=== PATIENT | male | born 1955 | race Caucasian/White ===

== ENCOUNTER 2016-10-02 18:16 | Inpatient (IN) | payer SELFPAY ==
--- NOTE | ~2016-10-02 | CN ---
Consultation Report [place] [id number] [facility] [place]. [address] NAME: NAVI ANNA : 57 STATUS : ADM IN PAT#: [id number] AGE: 61 ADM/REG DATE : 10/02/16 MR#: [id number] REPORT SERV DATE: 10/03/16 DICTATED BY: TERRENCE LÓPEZ JR DATE: 10/03/16 REPORT STATUS : Draft TRANSCRIBED BY: MODL DATE: 10/03/16 NEPHROLOGY CONSULTATION DATE OF CONSULTATION: 10/03/2016 REFERRING PHYSICIAN: Dr. Simons. REASON FOR CONSULTATION: Acute renal failure. IMPRESSION: 1. Acute renal failure versus acute on chronic renal failure, versus all chronic kidney disease. 2. Question nephrotic syndrome associated with diabetic or other primary nephropathy. 3. Consider diabetic nephropathy. 4. Consider cardiorenal. 5. Possible focal sclerosis associated with obstructive sleep apnea. 6. Consider other primary nephropathy, though urinalysis would not support glomerulonephritis. 7. Altered mental status, consideration of sleep apnea. No currently recognized offending medications. 8. Biomarkers notable for possible sepsis, clinically does not appear septic. 9. Decreased left ventricular ejection fraction 40% or less as mentioned elsewhere. 10.Morbid obesity. 11.Anasarca. 12.Diabetes of unknown duration or control. 13.Renal ultrasound at outside hospital showing bilateral exophytic cyst but otherwise unremarkable. 14.Doubt other acute glomerulonephritis based on available data. PLAN: Concur with planned diuretic need, treatment of the anasarca, and will use additionally a distal diuretic in combination with his chronic Bumex dosing. Evaluate and treat his obstructive sleep apnea. Serological evaluation as appropriate based on a 12-hour urine study. Thank you for the consult. HISTORY OF PRESENT ILLNESS: Mr. Anna is transferred here for possible sepsis and is said to have depressed left ventricular ejection fraction, and has developed a rising creatinine while he was being treated for "congestive heart failure" at outside hospital. Entry creatinine was 1.5. Outside notes suggested that was his baseline value. Outside notes reference proteinuria, but I do not see a quantitation of proteinuria. He is said to have diabetes of unknown duration, or chronic level of control, otherwise so an A1c referenced of 9.6. He is morbidly obese, smoking status is not known. Consultation Report [place] [address] [facility] [place]. [address] NAME: NAVI ANNA : 57 STATUS : ADM IN PAT#: [id number] AGE: 61 ADM/REG DATE : 10/02/16 MR#: [id number] REPORT SERV DATE: 10/03/16 DICTATED BY: TERRENCE LÓPEZ JR DATE: 10/03/16 REPORT STATUS : Draft TRANSCRIBED BY: BRYCE DATE: 10/03/16 HOME MEDICATIONS: Included metformin and lisinopril 40 mg twice daily. Other past medical history is not identified. The patient is hypersomnolent, does not participate in interview at this time. FAMILY HISTORY: In others' notes, noncontributory. SOCIAL HISTORY: In others' notes, documented as no tobacco habituation. . No alcohol or drug use. REVIEW OF SYSTEMS: Not otherwise available from this client at this time. PHYSICAL EXAMINATION: GENERAL: Morbidly obese male, who is hypersomnolent. He appears in no acute distress otherwise. HEENT: Cranium is normocephalic. Male pattern baldness is present. Scleral icterus is not seen. Periorbital edema is not present. Oropharynx; mucous membranes grossly appear moist NECK: Fat and I cannot see neck veins at all. Bruits could not be auscultated. HEART: Heart tones are regular without audible rub or gallop. LUNGS: Equal air entry, but respiratory effort is diminished. No increased rate. No excessive muscle use. ABDOMEN: Grossly obese with abdominal wall edema. Visceromegaly cannot be appreciated on examination. Bruits not heard. EXTREMITIES: Obese but he has 2+ to 3+ pitting edema, absent cyanosis. Diminished distal pulses symmetrically. NEUROLOGIC: Cannot further assess. PSYCHIATRIC: Cannot further assess. LABORATORY DATA: Chest x-ray showed reasonably clear lung rodríguez, and no significant cardiomegaly. Troponins have been slightly elevated. Creatinine was 1.5 at outside hospital, it was about 3.5 upon entry here. Urinalysis suggestive of proteinuria, but not otherwise quantitated. BNP was 1100. Lactic acid levels are not elevated. Data from outside hospital was reviewed. KATHY/BRYCE Terrence López Jr, M.D. / [id number] Consultation Report [place] [address] [place]. [address] NAME: NAVI ANNA : 57 STATUS : ADM IN PAT#: [id number] AGE: 61 ADM/REG DATE : 10/02/16 MR#: [id number] REPORT SERV DATE: 10/03/16 DICTATED BY: TERRENCE LÓPEZ JR DATE: 10/03/16 REPORT STATUS : Draft TRANSCRIBED BY: TABBYL DATE: 10/03/16 CC: Ashutosh Fuentes CALEB S
--- NOTE | ~2016-10-02 | CN ---
Consultation Report [facility] [address] [place]. [address] NAME: NAVI ANNA : 57 STATUS : ADM IN [facility]#: [id number] AGE: 61 ADM/REG DATE : 10/02/16 MR#: [id number] REPORT SERV DATE: 10/03/16 DICTATED BY: EFREN BURGOS DATE: 10/03/16 REPORT STATUS : Draft TRANSCRIBED BY: MODL DATE: 10/03/16 CARDIOLOGY CONSULT DATE OF CONSULTATION: 10/03/2016 REASON FOR CONSULTATION: Abnormal troponin. HISTORY PRESENT ILLNESS: Mr. Anna is a 61-year-old male with no known history of coronary artery disease, who is transferred from an outside facility for management of multiple medical problems. He recently presented there with symptoms of exertional shortness of breath, cough, and fever. He was found to have acute hypoxic respiratory failure with pneumonia and gram-positive bacteremia with sepsis. He subsequently developed acute renal failure and anasarca. Prior to his presentation with those complaints, he had a history of hypertension, diabetes, and obesity. He has had no recent history of exertional chest pain or angina. 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 He has had no palpitations or syncope. He denies orthopnea/PND. After several days of being treated at the outside facility due to progressive anasarca and shortness of breath, troponins were checked, which trended from 0.1 to 0.2. An echocardiogram was obtained after cardiology consult there with an EF of 40% and global hypocontractility. He has been transferred to [facility] for further evaluation and management. On arrival here, he was sitting at the bedside, eating breakfast with some dyspnea at rest, but no complaints. REVIEW OF SYSTEMS: Pertinent positives and negatives are as outlined above, all other negative. PAST MEDICAL HISTORY: 1. Hypertension. 2. Diabetes mellitus. 3. Obesity. 4. Family history of ischemic heart disease. HOME MEDICATIONS: 1. 70/30 insulin. 2. Metformin. 3. Lisinopril 40 mg daily. 4. Aspirin 325 mg daily. 5. Amlodipine. ALLERGIES: NO KNOWN DRUG ALLERGIES. SOCIAL HISTORY: He previously worked as a delivery rn. He has a remote history of tobacco use, but quit. He does not consume alcohol or use illegal drugs. FAMILY HISTORY: Significant for coronary artery disease and stroke. Consultation Report [place] [id number] [place]. [address] NAME: NAVI ANNA : 57 STATUS : ADM IN PAT#: [id number] AGE: 61 ADM/REG DATE : 10/02/16 MR#: [id number] REPORT SERV DATE: 10/03/16 DICTATED BY: EFREN BURGOS DATE: 10/03/16 REPORT STATUS : Draft TRANSCRIBED BY: BRYCE DATE: 10/03/16 PHYSICAL EXAMINATION: VITALS: Temperature is 99, pulse is 98, respirations 16, blood pressure is 170/100. GENERAL: Obese male with moderate diffuse anasarca, who is sitting upright in no acute distress. HEENT: Sclerae anicteric, mucous membranes moist and without lesions. NECK: Unable to assess jugular venous distention due to body habitus. No hepatojugular reflux, carotid upstrokes 2+ and symmetric, there are no carotid or subclavian bruit. LUNGS: Clear to auscultation without wheezes, or rales. Moderately decreased breath sounds throughout with basilar crackles. CARDIOVASCULAR: Regular and tachycardiac with occasional ectopy. Distant S1 and S2. No audible S3. No audible murmurs. ABDOMEN: Obese, soft, and nontender. Bowel sounds positive, normoactive. PULSES: 2+, radial and dorsalis pedis and symmetric. EXTREMITIES: Warm with diffuse pitting anasarca with bilateral upper and lower extremities. SKIN: No clubbing or cyanosis, no rashes or lesions. ACCESSORY DATA: ECG shows sinus rhythm with PACs, there is poor R wave progression with left axis deviation with no acute ST abnormalities. Troponin peaked at 0.2 with a creatinine of 3.4. White count on initial presentation at outside facility was 17,000, [id number] with broad- spectrum antibiotics. IMPRESSION: 1. Pneumonia. 2. Sepsis with gram-positive bacteremia. 3. Acute renal failure. 4. Acute hypoxic respiratory failure. 5. Anasarca. 6. Demand ischemia. 7. Hypertension. 8. Diabetes mellitus. 9. Obesity. PLAN: Mr. Anna' initial presentation appears to be a primary respiratory event. He may have a component of obstructive sleep apnea and Pickwickian syndrome. He has an EF of 40%, which is likely nonischemic etiology with no recent symptoms of angina, no ischemic ECG changes, and minimal troponin elevation in the setting of his critical illness and acute renal failure. No plans for invasive procedures as with his acute renal failure, risk with coronary angiography is greater than potential benefit as he is clinically improving. Recommend carvedilol, hydralazine, and nitrates for blood pressure. I agree with diuresis with Bumex, and close followup of renal function. We will follow with you. Recommend medical management for now. Consultation Report [place] [address] [place] [address] NAME: NAVI ANNA : 57 STATUS : ADM IN PAT#: [id number] AGE: 61 ADM/REG DATE : 10/02/16 MR#: [id number] REPORT SERV DATE: 10/03/16 DICTATED BY: EFREN BURGOS. DATE: 10/03/16 REPORT STATUS : Draft TRANSCRIBED BY: BRYCE DATE: 10/03/16 TIFFANIEA/BRYCE Efren Burgos M.D. / [id number] CC: Ashutosh Fuentes
--- NOTE | ~2016-10-02 | DS ---
Discharge Summary [facility] [address] [place]. [address] NAME: NAVI HUSSEIN : 57 STATUS : DIS IN PAT#: [id number] AGE: 61 ADM/REG DATE : 10/02/16 MR#: [id number] REPORT SERV DATE: 10/07/16 DICTATED BY: DATE: REPORT STATUS : Draft TRANSCRIBED BY: MODL DATE: 10/06/16 ADMISSION DATE: 10/02/2016 DISCHARGE DATE: 10/06/2016 The patient previously was hospitalized at [facility] in [place], [place] with date of admission, 09/29/2016 and date of transfer to [facility], 10/02/2016. The patient was initially admitted to the [facility] and followed by Dr. Uribe, transferred to the Hospitalist Service on 10/04/2016. CONSULTANTS: Included Dr. Schaeffer and Dr. Foster of the [facility] and Dr. Roberto Nunez of Nephrology. DISCHARGE DIAGNOSES: 1. Sepsis due to community-acquired pneumonia and group B strep bacteremia. 2. Right lower extremity cellulitis and bilateral groin cellulitis preceding transfer, suspected source of group B strep bacteremia. 3. Chronic kidney disease, stage IV. 4. 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 5. Hypertension, uncontrolled at admission. Improving, control at discharge. 6. Insulin-dependent diabetes mellitus type 2, uncontrolled with hemoglobin A1c at 10.1. Seen by outreach educator here. 7. New diagnosis of chronic systolic congestive heart failure with ejection fraction of 40%. 8. Demand-related ischemia, mild elevation of troponin due to sepsis and acute kidney injury versus chronic kidney disease. No invasive interventions this admission. 9. Clinically, obstructive sleep apnea. CPAP machine arranged through [facility], for outpatient sleep study. 10.Clinically, chronic obstructive pulmonary disease, for further outpatient evaluation with pulmonary function tests and assessment of daytime home oxygen needs. 11.Morbid obesity with BMI of 45. IMAGING AND DIAGNOSTICS: 1. In this facility included portable chest x-ray, 10/02/2016, shows borderline enlarged cardiac silhouette accentuated by shallow inspiration. Minimal atelectasis, but no clear infiltrate. 2. Portable chest x-ray, 10/04/2016, shows cardiomegaly. No airspace disease. 3. Nocturnal pulse oximetry on room air, 10/05/2016, shows significant desaturations during the study with elevated desaturation index of 61.7 and 49 minutes of the six hour study spent with oxygen saturation less than 88%. Recommendation for 2 L of oxygen by nasal cannula at discharge and recommendation for formal sleep study. PERTINENT LABS: MRSA nasal swab negative. Initial creatinine 3.8, 2.8 on the day of discharge. 12-hour urine protein demonstrating nephrotic-range proteinuria. Initial Discharge Summary [address] [address] NAME: NAVI HUSSEIN : 57 STATUS : DIS IN PAT#: [id number] AGE: 61 ADM/REG DATE : 10/02/16 MR#: [id number] REPORT SERV DATE: 10/07/16 DICTATED BY: DATE: REPORT STATUS : Draft TRANSCRIBED BY: MODL DATE: 10/06/16 troponin elevated at 0.3, down to 0.2 by the following morning. Admission blood gas with pH 7.33, pCO2 of 48, pO2 of 82, oxygen saturation 96% on room air. Urinalysis showed protein and glucose. Urine Legionella antigen negative. Strep pneumococcal antigen negative. Lactic acid level negative. BNP 1141. Initial procalcitonin elevated at 1.63. Liver enzymes normal. TSH normal. White blood cell count remained normal during the [facility] hospitalization. Blood cultures obtained at [facility] showed no growth. Report from [place] was of 1 of 2 bottles positive for group B strep from 09/29/2016. Hemoglobin A1c 10.1. Lyme antibody screen negative. Please also request records from [facility] for details of additional diagnostics performed there including echocardiogram demonstrating ejection fraction of 40% with global hypokinesis. BRIEF HISTORY: For full details, please see the previously dictated history of present illness by Dr. Shahbaz Simons. This is a 61-year-old white male who was admitted to [facility] in [place], [place] on 09/29/2016, for shortness of breath, whole body edema, hypoxemia with oxygen saturations in the 80s, bilateral atelectasis, fever of 103.2, leukocytosis, mild elevation of troponin, BNP, and D-dimer. BUN and creatinine were also found to be elevated, and lactic acid level was 2.8. There, he was treated for community-acquired pneumonia with Zosyn and Levaquin and was also placed on Zyvox for gram-positive bacteremia. His troponin became elevated slightly further during the hospitalization in [place], peaking at 0.22, and his creatinine up trended to 4.1. The patient was transferred to [facility] for cardiac and renal evaluation. HOSPITAL COURSE: The patient initially was admitted to the intensive care unit, Dr. Uribe served as the attending from 10/02/2016 through 10/04/2016, at which point, he was transferred out to the [facility] and the Hospitalist Service assumed his care. For details of those days, please reference the progress notes. The patient's antibiotic regimen was streamlined at admission. Zosyn was discontinued and renally dosed Levaquin was continued for treatment of community-acquired pneumonia. The outside transferring facility was contacted for finalized blood culture results, and the patient had been placed on vancomycin in the interim. Zyvox was discontinued. When cultures were resulted as group B strep, the patient was changed to IV Ancef, and now we will continue an additional two weeks of ampicillin for complete treatment. Suspected source is skin and soft tissue, including right lower extremity cellulitis prior to admission and bilateral groin cellulitis prior to admission. Both are resolved at present. The patient completed seven days of Levaquin treatment in the hospital for community-acquired pneumonia, and this was discontinued at discharge. Regarding the elevated troponin, this was determined to be demand-related ischemia. Cardiology saw the patient and recommended medical management, but no invasive evaluation. The patient does not have a history of coronary artery disease, though does have several risk factors and will follow up with Dr. Schaeffer in the outpatient setting for further evaluation. Echocardiogram at the outside facility revealed ejection fraction of 40% for new diagnosis of chronic systolic congestive heart failure. He did demonstrate acute exacerbation during the admission with hypoxemia prior to transfer and anasarca. His medication regimen including diuretics was managed by both Cardiology and Nephrology. Discharge Summary [place] [address] [address] [place]. [address] NAME: NAVI HUSSEIN : 57 STATUS : DIS IN PAT#: [id number] AGE: 61 ADM/REG DATE : 10/02/16 MR#: [id number] REPORT SERV DATE: 10/07/16 DICTATED BY: DATE: REPORT STATUS : Draft TRANSCRIBED BY: MODL DATE: 10/06/16 Regarding his elevated creatinine, the patient was seen by Nephrology, Dr. Roberto Nunez. 12 hour urine protein revealed gross proteinuria. Dr. Nunez felt this was likely related to uncontrolled insulin-dependent diabetes mellitus type 2 versus sleep apnea associated focal segmental glomerulosclerosis. Metformin, which he had taken as an outpatient was held as well given new probable diagnosis of chronic kidney disease, stage IV. The acute kidney injury resolved during the admission. The patient was noted on several occasions to be snoring loudly while sleeping and with excessive daytime somnolence. Nocturnal pulse oximetry study was obtained with frequent desaturations. The patient is a self-pay patient, but a CPAP machine was obtained for him through [employer] by our piano case maker. He will have to have a formal outpatient sleep study for calibration of his CPAP machine. Case management is also working on determining if we can arrange for 2 L of oxygen by nasal cannula at bedtime for him. He is being evaluated for home daytime oxygen requirements as well. He has a past extensive history of smoking, but quit 15 years ago, and may have some underlying COPD. The patient's diabetes was controlled with blood sugars between 150 and 180 on a regimen of Levemir and NovoLog. Unfortunately, he will have to resume 70/30 at discharge for financial considerations. He was seen by the inpatient outreach educator here and both he and were educated on the need for adherence to a diabetic diet. Additional test strips and lancets were ordered for him as well. DISCHARGE DISPOSITION: The patient is being discharged to home in the care of his supportive family. He is being assessed for home daytime oxygen needs prior to discharge, and case management is attempting to arrange 2 L oxygen by nasal cannula for bedtime use until he follows up for a formal sleep study and can have the CPAP machine calibrated. The patient should adhere to an 1800 kilocalorie ADA, 2 g sodium restricted, 2 L fluid restricted diet at discharge and was educated on this by nursing staff. He has multiple followup appointments pending including with Nephrology associates in three weeks, with Dr. Schaeffer in four weeks, and with PCP Amauri CUENCA within one week. Unfortunately, despite Case Management's best efforts, the patient does not presently have a disability qualifying diagnosis and therefore, application for insurance could not be made this admission. The patient will need to continue to follow up closely with his primary care provider for re-evaluation in the future. DISCHARGE MEDICATIONS: 1. Aspirin 81 mg p.o. daily. 2. Carvedilol 25 mg p.o. twice a day. 3. Imdur 30 mg p.o. twice a day. 4. Potassium chloride 40 mEq p.o. twice a day. 5. Torsemide 40 mg p.o. twice a day for five days, then daily. 6. Hydralazine 25 mg p.o. every eight hours. 7. Celexa 40 mg p.o. daily. 8. Humulin 70/30, 30 units subcutaneously q.a.c. breakfast and supper. Discharge Summary [address] [address] NAME: NAVI HUSSEIN : 57 STATUS : DIS IN PAT#: [id number] AGE: 61 ADM/REG DATE : 10/02/16 MR#: [id number] REPORT SERV DATE: 10/07/16 DICTATED BY: DATE: REPORT STATUS : Draft TRANSCRIBED BY: MODL DATE: 10/06/16 9. Ampicillin 500 mg p.o. q.8 hours for two weeks. 10.Rely on test strips and lancets for t.i.d. testing. Lisinopril is on hold until re-evaluated by Nephrology as is metformin. Forty-five minutes was spent in completion of the discharge, including coordination with case management and specialists and review of the plan with the patient and family. INES/BRYCE Jared Mendoza M.D. / [id number] CC: Ashutosh Abarca Jr, M.D. Allen E Atchley, M.D.
--- NOTE | ~2016-10-02 | PUL ---
[place] [address] [place]. [address] NAME: NAVI HUSSEIN : 57 STATUS : ADM IN PAT#: [id number] AGE: 61 ADM/REG DATE : 10/02/16 MR#: [id number] REPORT SERV DATE: 10/05/16 DICTATED BY: KRISTINA OGLESBY DATE: 10/05/16 REPORT STATUS : Draft TRANSCRIBED BY: MODL DATE: 10/05/16 PULMONARY FUNCTION TEST OVERNIGHT OXIMETRY REPORT COMMENTS: Testing was performed with the patient breathing on room air. Start date of testin10/04/2016. Ended date of testin10/05/2016. RESULTS: Total valid sampling time 6 hours 12 minutes and 24 seconds. Total time with an oxygen saturation less than 88% at 49 minutes and 28 seconds. Oxygen desaturation event index 61.7. IMPRESSION: There was significant desaturation during this study conducted while the patient was breathing on room air. The oxygen desaturation index was elevated suggestive of possible obstructive sleep apnea. RECOMMEND: Supplemental oxygen at a minimum flow rate of 2 liters/minute while sleeping. Additionally, I recommend formal sleep study to evaluate for possible obstructive sleep apnea if clinically indicated. PS/BRYCE Kristina Oglesby M.D. / [id number] CC: Ashutosh Abarca CALEB S
--- NOTE | ~2016-10-02 | HP ---
History And Physical [id number] [place]. [address] NAME: NAVI HUSSEIN : 57 STATUS : ADM IN [facility]#: [id number] AGE: 61 ADM/REG DATE : 10/02/16 MR#: [id number] REPORT SERV DATE: 10/02/16 DICTATED BY: ANGIE STEWARD DATE: 10/02/16 REPORT STATUS : Draft TRANSCRIBED BY: MODL DATE: 10/02/16 DATE OF ADMISSION: 10/02/2016 Transfer from [place], [place], for oliguria and elevated troponins. Recent treatment for sepsis and pneumonia additionally. The patient was transferred to MICU, evaluated by Dr. Teran, requesting hospitalist admission to IMCU and transfer off MICU due to no acute MICU requirements at this time. Majority of information is also obtained from outside records. HISTORY OF PRESENT ILLNESS: The patient is a 61-year-old male with history of obesity, type 2 diabetes insulin dependent, hypertension, COPD, congestive heart failure, who presented to [facility] with shortness of breath and found to be hypoxic with oxygenation in the 80s, found to have bilateral atelectasis, rales, fever of 103.2, leukocytosis over 16,000. Troponin was elevated at 0.12. The patient additionally had a BNP noted at 1660, D-dimer at 2100. BUN and creatinine at 20 and 24. Lactic acid was 2.8 and was transferred to higher level of care of [facility] ICU. There, he was treated for community-acquired pneumonia, but was started on Zyvox, Zosyn, and Levaquin for broad-spectrum coverage in the emergency room. Troponin was trended peaking at 0.22. Workup for sepsis was continued. The patient's severe sepsis criteria included lactic acidosis, leukocytosis, fever, and TORSTEN. Fever did have resolution. Leukocytosis and lactic acidosis came back down to normal range. However, the patient did have progressive oliguria and TORSTEN above his CKD status with creatinine going from 2.4 to 2.7, up to 4.1 currently with the presence of troponin elevations at 0.22. The patient was transferred to [facility] for renal and cardiac evaluation. When discussion with the patient, he denies having any chest pain issues except with deep breathing. He reports that he has had multiple family members who have been sick. Does have history of heart failure and he says he is chronically having 4+ edema on a day-to-day basis. The patient's shortness of breath has been progressive over the last month. Does report that it is notably better, but not quite resolved. His main concern at this time is, he is eager to eat. The patient also reported that he did not quite recognize fevers at home, but was told he had fevers in the hospital setting. No true sputum production or cough. There are no worsening symptoms, but no relieving symptoms. The patient reports that he was doing a lot of urination at home, but he did require using Lasix three times a day. REVIEW OF SYSTEMS: For additional 10-point review of systems, these are negative except that noted in HPI. PAST MEDICAL HISTORY: As noted above. SURGICAL HISTORY: Hiatal hernia. ALLERGIES: NO KNOWN DRUG ALLERGIES. SOCIAL HISTORY: Smoked two packs a day for 18 years, quit about 15 years ago. No alcohol or illicits. Has at bedside and children at bedside. History And Physical [address] [address] NAME: NAVI HUSSEIN : 57 STATUS : ADM IN [facility]#: [id number] AGE: 61 ADM/REG DATE : 10/02/16 MR#: [id number] REPORT SERV DATE: 10/02/16 DICTATED BY: ANGIE STEWARD DATE: 10/02/16 REPORT STATUS : Draft TRANSCRIBED BY: BRYCE DATE: 10/02/16 FAMILY HISTORY: Heart father of [place] at age 81. HOME MEDICATIONS: Aspirin, Celexa, Lasix t.i.d., Humulin, Prinivil 40 mg b.i.d., Glucophage, Klor-Con. PHYSICAL EXAMINATION: VITAL SIGNS: O2 saturations 94% on 2 L, blood pressure 130/83, temperature 98, pulse 83, respirations 14. GENERAL: Obese, well developed, well nourished. Appears older than stated age. EYES: No scleral icterus. EOMI. ENT: Nares patent. Moist mucous membranes. NECK: Large neck. CHEST: Increased AP diameter. RESPIRATORY: Polyphonic breath sounds in lower lung rodríguez with mildly diminished lung rodríguez. No stridor. Mouth breather. CV: Regular rate. Mild systolic ejection murmur with 4+ bilateral edema. Cap refill less than 2 seconds. GI: Central obesity. Large, distended with tympany. Negative rebound. Mild fluid wave. SKIN: Warm and dry. LYMPH: No cervical lymphadenopathy. Does have bilateral pedal edema. MUSCULOSKELETAL: Moves all extremities x4, but does have difficulty elevating lower extremities secondary to 4+ edema. NEURO: Symmetrical strength upper and lower extremities. Has normal vocal liza. Alert and oriented. Symmetrical smile. PSYCH: Appropriate mood and affect, joking manner. LABORATORY DATA: Labs from outside facility, lactate initially was 2.8 down to 1.6. WBC initially was 16.5, down to 8.8. Troponins have peaked at 0.22. Creatinine has been from 2.7, up to 4.1 with proteinuria. Albumin at 1.9. BMP initially 1660. Repeat at 210. Echocardiogram showed ejection fraction of 35% to 40%. The patient's blood cultures are gram-positive cocci. Chest x-ray, no mismatched perfusion to suggest pulmonary embolism. However, intermediate probability for PE. Ultrasound Dopplers negative in upper and lower extremities done at outside facility. Ultrasound of kidneys, bilateral large simple renal cyst. No signs of obstructive uropathy. EKG, none currently on chart. ASSESSMENT: 1. Community-acquired pneumonia. 2. Severe sepsis. 3. Gram-positive bacteremia. 4. Elevated troponin. 5. Oliguria with chronic kidney disease and current acute kidney injury. 6. Anasarca. 7. Diabetes type 2 with A1c at 9.6, insulin dependent. 8. Obesity. 9. Hypertension. 10.Elevated D-dimer. 11.Hypomagnesemia. History And Physical [address] [address] NAME: NAVI HUSSEIN : 57 STATUS : ADM IN [facility]#: [id number] AGE: 61 ADM/REG DATE : 10/02/16 MR#: [id number] REPORT SERV DATE: 10/02/16 DICTATED BY: ANGIE STEWARD DATE: 10/02/16 REPORT STATUS : Draft TRANSCRIBED BY: MODL DATE: 10/02/16 12.Chronic obstructive pulmonary disease. 13.Congestive heart failure, systolic. 14.Acute hypoxic respiratory failure on arrival at outside facility. PLAN: 1. For community-acquired pneumonia, the patient was started on broad-spectrum antibiotics at outside facility including Levaquin, Zyvox, and Zosyn. Per nurse, has received Levaquin earlier today. Due to renal function, we will need to have renal dosing. We will discontinue Zosyn and Zyvox. Dose vancomycin with renal dosing due to gram- positive cultures. Additionally, add flutter valve, O2, and DuoNeb treatments. Repeat chest x-ray. Repeat blood cultures. The patient was additionally gram-positive bacteremic. Check urine Strep and Legionella. 2. Sepsis, gram-positive bacteremia. Initial fevers of 103.2, leukocytosis 16.5, lactic acidosis of 2.8. TORSTEN. The patient's fever has resolved. Leukocytosis has resolved. Lactic acidosis has resolved. However, the patient has persistent progressive TORSTEN. We will continue treatment for pneumonia with pharmacy help assisting with dose adjustments of medications. Again, stop all nephrotoxins. Continue to monitor. 3. Gram-positive bacteremia. Culture still pending. Discontinue Zosyn and Zyvox. Renal dose Levaquin. Start vancomycin. 4. Elevated troponin. Troponin is at 0.1 to 0.22. Questionable supply demand mismatch. However, the patient had not been started on heparin drip. The patient denies any chest pain except during deep breathing cycles. The patient was transferred here for additional cardiac evaluation and nephrology evaluation. Does have history of CHF. 5. Oliguria, CKD stage 3 with TORSTEN. Creatinine is up to 4.1 with gross proteinuria. Low albumin. The patient has currently stopped on RENETTA inhibitor. Was being given IV fluid boluses in the setting of sepsis at outside facility and in the presence of TORSTEN. Holding additional fluid boluses at this time. Has vital signs, blood pressure stable until evaluated by Renal. Additionally holding metformin. 6. Anasarca, +4 edema, acute on chronic. The patient reports for a long time, most notably over the last month with significant weight gain. Does have history of heart failure, systolic. EF of 35% to 40%. 7. Diabetes. A1c 9.6, sliding scale insulin. We will restart Levemir. Discontinue metformin. Diabetic education. 8. Obesity. Positive fluid gain likely secondary to fluid balance and likely no dietary restriction. 9. Hypertension, acceptable. 10.Elevated D-dimer. Has had extensive workup including V/Q scan with intermediate probability. Negative ultrasounds per outside facility records. Doubt active PE. CT, unable to be performed secondary to renal disease. 11.Hypomagnesemia. Has been replaced at outside facility. 12.COPD. O2, DuoNebs. 13.CHF with EF 35% to 40%. BNP was noted last at 210. Was taking up to three Lasix a day. Lisinopril. We will hold these at this time. These were held in the setting of CKD, TORSTEN, and sepsis. We will need to continue further monitoring. I's and O's as tolerated in the setting of oliguria, TORSTEN. 14.Acute hypoxic respiratory failure on initial presentation. This appears to have been improving, but multifactorial with a history of CHF, COPD, obesity, anasarca, CKD. History And Physical [address] [address] NAME: NAVI HUSSEIN : 57 STATUS : ADM IN [facility]#: [id number] AGE: 61 ADM/REG DATE : 10/02/16 MR#: [id number] REPORT SERV DATE: 10/02/16 DICTATED BY: ANGIE STEWARD DATE: 10/02/16 REPORT STATUS : Draft TRANSCRIBED BY: MODL DATE: 10/02/16 Additionally likely decompensated after pneumonia and severe sepsis component. Case has been reviewed by ICU, Dr. Teran. Does not appear to require MICU, acute care needs. We will transfer to IMCU and possible floor. DDN/MODL Angie Steward MD / [id number] CC: Caryl Reyna M.D. KAILYN PARRISH
[2016-10-02] MEDS ORDERED: L20 PO ×2 (20:30→20:45)
[2016-10-02] MEDS ORDERED: GLUCOPHAGE1000 MG PO (20:30)
[2016-10-02] MEDS ORDERED: LISINOPRIL40 MG PO (20:30)
[2016-10-02] MEDS ORDERED: KLOR-CON M1010 MEQ PO (20:30)
[2016-10-02] MEDS ORDERED: CELEXA40 MG PO (20:30)
[2016-10-02] MEDS ORDERED: HUMULIN SC (20:31)
[2016-10-02] MEDS ORDERED: ASABAYER PO (20:46)
[2016-10-02 23:05] LABS: CREATININE 3.81 MG/DL (0.70-1.30)
[2016-10-03 03:31] LABS: INSTRUMENT SERIAL # 8083; PCO2 (CO2 TENSION) 48 MMHG (35-45); pH 7.33 (7.37-7.43)
[2016-10-03 03:32] LABS: BE (BASE EXCESS) -1.2 MEQ/L (0 +/- 2.5); CARBOXYHEMOGLOBIN 1.2 % (0-3); DEVICE NC; HCO3 (ACTUAL BICARBONATE) 25.1 MEQ/L (23-27); HEMOBLOGIN CONTENT 13.9 G/DL (14-18); METHEMOGLOBIN 0.2 % (0-3); O2 CONTENT 18.5 VOL% (18-24); PO2 (O2 TENSION) 82 MMHG (79-93); SAMPLE Arterial
[2016-10-03 04:35] LABS: ASCORBIC ACID (UR NOT ORDER) NEG (NEG); BILIRUBIN, URINE NEGATIVE (NEG); KETONE, URINE NEGATIVE (NEG); LEUKOCYTE ESTERASE(NOT OR NEG (NEG); WBC (NOT ORDERED) (RFLEX) 1 (0-5)
[2016-10-03 04:42] LABS: BASOPHILS 0.2 %; BASOPHILS ABSOLUTE 0.02 10/3/uL (0.0-0.16); EOSINOPHILS 2.5 %; EOSINOPHILS ABSOLUTE 0.23 10/3/uL (0.0-0.53); HEMOGLOBIN 13.3 g/dL (13.6-17.8); IMMATURE GRANULOCYTES 0.4 %; IMMATURE GRANULOCYTES ABSOLUTE 0.04 10/3/uL (0.0-0.11); LYMPHOCYTES 13.4 %; LYMPHOCYTES ABSOLUTE 1.24 10/3/uL (0.67-4.30); MEAN CORPUS HGB CONC 33.3 g/dL (32.0-36.0); MEAN CORPUSCULAR VOLUME 90.1 fL (80-100); MEAN PLATELET VOLUME 10.3 fL (9.2-13.0); MONOCYTES 8.8 %; MONOCYTES ABSOLUTE 0.81 10/3/uL (0.21-1.20); NEUTROPHILS 74.7 %; NEUTROPHILS ABSOLUTE 6.89 10/3/uL (2.02-8.40); PLATELET COUNT 218 10/3/uL (150-400); RBC DISTRIBUTION WIDTH 13.4 % (12.0-16.0); RED CELL COUNT 4.44 10/6/uL (4.7-6.1); WHITE BLOOD CELLS 9.2 10/3/uL (4.5-10.5)
[2016-10-03 04:43] LABS: MANUAL DIFF NO %
[2016-10-03 05:13] LABS: A/G RATIO 0.6 (0.7-1.9); ALBUMIN 2.1 G/DL (3.5-5.0); ALKALINE PHOSPHATASE 60 U/L (45-117); BUN (BLOOD UREA NITROGEN) 51 MG/DL (6-23); CALCIUM, SERUM 8.3 MG/DL (8.5-10.4); CHLORIDE, SERUM 102 MMOL/L (96-112); CO2 (CARBON DIOXIDE) 23 MMOL/L (24-34); CREATININE 3.42 MG/DL (0.70-1.30); GFR AFRICAN AMERICAN 21 ML/MIN (>=60); GFR NON AFRICAN AMERICAN 18 ML/MIN (>=60); GLOBULIN 3.4 G/DL (2.5-4.1); GLUCOSE, SERUM 227 MG/DL (60-99); POTASSIUM, SERUM 3.8 MMOL/L (3.5-5.3); SGOT(AST) 14 U/L (5-40); SGPT(ALT) 19 U/L (5-65); SODIUM, SERUM 139 MMOL/L (135-148); TOTAL BILIRUBIN 0.6 MG/DL (0-1.2); TOTAL PROTEIN 5.5 G/DL (6.0-8.5)
[2016-10-03 06:57] LABS: PROCALCITONIN 1.63 ng/mL (<0.5)
[2016-10-04 03:56] LABS: CREATININE, URINE 17.4 MG/DL; T.P. URINE (NOT ORDER RAN 43.3 MG/DL
[2016-10-04 03:58] LABS: URINE CREAT 0.92 G/T VOL (0.6-2.8)
[2016-10-04 05:14] LABS: BASOPHILS 0.2 %; BASOPHILS ABSOLUTE 0.02 10/3/uL (0.0-0.16); EOSINOPHILS 1.3 %; EOSINOPHILS ABSOLUTE 0.13 10/3/uL (0.0-0.53); HEMATOCRIT 43.1 % (40.0-51.0); HEMOGLOBIN 14.5 g/dL (13.6-17.8); IMMATURE GRANULOCYTES 0.5 %; IMMATURE GRANULOCYTES ABSOLUTE 0.05 10/3/uL (0.0-0.11); LYMPHOCYTES 8.2 %; LYMPHOCYTES ABSOLUTE 0.84 10/3/uL (0.67-4.30); MANUAL DIFF NO %; MEAN CORPUS HGB CONC 33.6 g/dL (32.0-36.0); MEAN CORPUSCULAR HEMOGLOB 30.1 pg (26.0-34.0); MEAN CORPUSCULAR VOLUME 89.6 fL (80-100); MEAN PLATELET VOLUME 9.8 fL (9.2-13.0); MONOCYTES 10.7 %; NEUTROPHILS 79.1 %; PLATELET COUNT 212 10/3/uL (150-400); RBC DISTRIBUTION WIDTH 13.1 % (12.0-16.0); RED CELL COUNT 4.81 10/6/uL (4.7-6.1); WHITE BLOOD CELLS 10.2 10/3/uL (4.5-10.5)
[2016-10-04 05:26] LABS: ALBUMIN 2.1 G/DL (3.5-5.0); BUN (BLOOD UREA NITROGEN) 49 MG/DL (6-23); CALCIUM, SERUM 8.6 MG/DL (8.5-10.4); CHLORIDE, SERUM 99 MMOL/L (96-112); CO2 (CARBON DIOXIDE) 27 MMOL/L (24-34); CREATININE 3.25 MG/DL (0.70-1.30); GFR AFRICAN AMERICAN 23 ML/MIN (>=60); GFR NON AFRICAN AMERICAN 20 ML/MIN (>=60); GLUCOSE, SERUM 268 MG/DL (60-99); POTASSIUM, SERUM 3.3 MMOL/L (3.5-5.3); SODIUM, SERUM 140 MMOL/L (135-148)
[2016-10-04 10:30] LABS: CREAT CLEAR (NOT ORDER) 39.4 ML/MIN (85-125); CREAT SERUM (NOT ORDER) 3.25 MG/DL (0.53-1.43)
[2016-10-05 05:37] LABS: BASOPHILS 0.5 %; BASOPHILS ABSOLUTE 0.04 10/3/uL (0.0-0.16); EOSINOPHILS 2.8 %; EOSINOPHILS ABSOLUTE 0.25 10/3/uL (0.0-0.53); HEMOGLOBIN 13.6 g/dL (13.6-17.8); IMMATURE GRANULOCYTES 1.1 %; LYMPHOCYTES 14.4 %; LYMPHOCYTES ABSOLUTE 1.26 10/3/uL (0.67-4.30); MEAN CORPUS HGB CONC 33.2 g/dL (32.0-36.0); MEAN CORPUSCULAR VOLUME 90.3 fL (80-100); MEAN PLATELET VOLUME 9.8 fL (9.2-13.0); MONOCYTES 10.4 %; MONOCYTES ABSOLUTE 0.91 10/3/uL (0.21-1.20); NEUTROPHILS 70.8 %; NEUTROPHILS ABSOLUTE 6.22 10/3/uL (2.02-8.40); PLATELET COUNT 252 10/3/uL (150-400); RBC DISTRIBUTION WIDTH 13.2 % (12.0-16.0); RED CELL COUNT 4.54 10/6/uL (4.7-6.1); WHITE BLOOD CELLS 8.8 10/3/uL (4.5-10.5)
[2016-10-05 05:38] LABS: MANUAL DIFF NO %
[2016-10-05 05:48] LABS: ALBUMIN 2.1 G/DL (3.5-5.0); BUN (BLOOD UREA NITROGEN) 47 MG/DL (6-23); CALCIUM, SERUM 8.7 MG/DL (8.5-10.4); CHLORIDE, SERUM 98 MMOL/L (96-112); CREATININE 2.94 MG/DL (0.70-1.30); GFR AFRICAN AMERICAN 26 ML/MIN (>=60); GFR NON AFRICAN AMERICAN 22 ML/MIN (>=60); GLUCOSE, SERUM 245 MG/DL (60-99); POTASSIUM, SERUM 3.3 MMOL/L (3.5-5.3); SODIUM, SERUM 141 MMOL/L (135-148)
[2016-10-05 05:49] LABS: CO2 (CARBON DIOXIDE) 34 MMOL/L (24-34)
[2016-10-05 20:00] LABS: LYME AB SCREEN RESULT Negative (NEG)
[2016-10-06 05:42] LABS: ALBUMIN 2.1 G/DL (3.5-5.0); BUN (BLOOD UREA NITROGEN) 48 MG/DL (6-23); CALCIUM, SERUM 8.4 MG/DL (8.5-10.4); CHLORIDE, SERUM 98 MMOL/L (96-112); CO2 (CARBON DIOXIDE) 32 MMOL/L (24-34); CREATININE 2.83 MG/DL (0.70-1.30); GFR AFRICAN AMERICAN 27 ML/MIN (>=60); GFR NON AFRICAN AMERICAN 23 ML/MIN (>=60); GLUCOSE, SERUM 161 MG/DL (60-99); PHOSPHORUS, SERUM 3.8 MG/DL (2.5-4.5); POTASSIUM, SERUM 3.7 MMOL/L (3.5-5.3); SODIUM, SERUM 140 MMOL/L (135-148)
[2016-10-06] MEDS ORDERED: COREG25 PO (12:47)
[2016-10-06] MEDS ORDERED: DEMA20 PO (12:48)
[2016-10-06] MEDS ORDERED: IMDUR30 PO (12:49)
[2016-10-06] MEDS ORDERED: APRES25 PO (12:49)
[2016-10-06] MEDS ORDERED: KLOR-CON M2020 MEQ PO (12:50)
[2016-10-06] MEDS ORDERED: ASAB PO (12:55)
[2016-10-06] MEDS ORDERED: AMPI500 PO (12:56)
[2016-10-06 15:43] LABS: ROCKY MTN SPOTTED FEVER AB IGG <1:64 (LTD64); ROCKY MTN SPOTTED FEVER AB IGM <1:64 (LTD64)
== END 2016-10-06 15:30 | disposition home or self-care (01) | DRG 871 ==
LOC: MIC 18:16 → IMCU 10-03 22:53 → 5SO 10-04 20:13
PROVIDERS: Hospitalist; Internal Medicine Critical Care Medicine; Internal Medicine Nephrology; Internal Medicine Pulmonary Disease; Student in an Organized Health Care Education/Training Program
DX: A41.9 Sepsis, unspecified organism (principal); J96.01 Acute respiratory failure with hypoxia; I13.0 Hypertensive heart and chronic kidney disease with heart failure and stage 1 through stage 4 chronic kidney disease, or unspecified chronic kidney disease; I24.8 Other forms of acute ischemic heart disease; J18.9 Pneumonia, unspecified organism; N18.4 Chronic kidney disease, stage 4 (severe); N17.9 Acute kidney failure, unspecified; I50.22 Chronic systolic (congestive) heart failure; Z68.42 Body mass index [BMI] 45.0-49.9, adult; L03.115 Cellulitis of right lower limb; R65.20 Severe sepsis without septic shock; E11.22 Type 2 diabetes mellitus with diabetic chronic kidney disease; E11.65 Type 2 diabetes mellitus with hyperglycemia; E83.42 Hypomagnesemia; J44.9 Chronic obstructive pulmonary disease, unspecified; E66.01 Morbid (severe) obesity due to excess calories; Z87.891 Personal history of nicotine dependence; Z79.82 Long term (current) use of aspirin; Z79.4 Long term (current) use of insulin
CPT/HCPCS: 36600; 71010; 80053; 80069; 80202; 81001; 82565; 82575; 82805; 82962; 83036; 83605; 83735; 83880; 84132; 84145; 84156; 84443; 84484; 85025; 86618; 86757; 86757-59; 87040; 87449; 87641; 93005; 94640; 94667; 94668; 94762; 97161-GP; A9270-GY; J0360; J0690; J1205; J3370